=== PATIENT | female | born 1975 ===

== ENCOUNTER → 2023-07-08 | Outpatient (CLI) | payer OTHER | LOC: COL.RAD 07:56 | DX: M47.817 Spondylosis without myelopathy or radiculopathy, lumbosacral region (principal); M48.07 Spinal stenosis, lumbosacral region; M75.112 Incomplete rotator cuff tear or rupture of left shoulder, not specified as traumatic; M19.012 Primary osteoarthritis, left shoulder; M25.511 Pain in right shoulder; M25.552 Pain in left hip ==